=== PATIENT | female | born 1975 | race Caucasian/White ===

== ENCOUNTER 2017-03-31 18:19 | Emergency (ER) | payer MEDICAID ==
[~2017-03-31] VITALS: Ht 170.2 cm; Wt 90.0 kg
[~2017-03-31 18:19] MED LIST: AMOXIL500 M1 OR; CHANTIX PO; CHANTIX0.5 MG OR; CIPRO500 MG OR; CIPROFLOXACN500 MG PO; FERROUS SULF324 M1 PO; LORTAB 5 OR; LORTAB5 PO; NAPROSYN500 MG OR; NAPROSYN500 MG PO; NO HOME MEDS; PREVACID30 M1 PO; PYRIDIUM200 MG PO; ULTRAM50 M1 PO; ULTRAM50 MG OR; VALIUM5 MG PO; ZOFRAN ODT4 MG PO
[2017-03-31 19:02] LABS: URINE BILIRUBIN - DIPSTICK NEGATIVE (NEGATIVE); URINE BLOOD DIPSTICK TRACE-INTACT (NEGATIVE); URINE CLARITY CLEAR; URINE COLOR YELLOW; URINE GLUCOSE - DIPSTICK NEGATIVE (NEGATIVE); URINE KETONE NEGATIVE (NEGATIVE); URINE LEUK ESTERASE NEGATIVE (NEGATIVE); URINE NITRITE - DIPSTICK NEGATIVE (Negative); URINE PROTEIN - DIPSTICK NEGATIVE (NEG-TRACE); URINE UROBILINOGEN - DIPSTICK 0.2 E.U./dL (0.2)
[2017-03-31] MEDS ORDERED: ULTRAM50 M1 PO (19:42)
[2017-03-31 19:58] VITALS: BP 135/75
== END 2017-03-31 20:07 | disposition home or self-care (01) | DRG 605 ==
LOC: ED 18:19
PROVIDERS: Emergency Medicine
DX: S20.212A Contusion of left front wall of thorax, initial encounter (principal); F17.210 Nicotine dependence, cigarettes, uncomplicated; X58.XXXA Exposure to other specified factors, initial encounter; R07.81 Pleurodynia

== ENCOUNTER 2017-08-20 02:59 | Emergency (ER) | payer MEDICAID ==
[~2017-08-20] VITALS: Ht 172.7 cm; Wt 76.4 kg
[2017-08-20] MEDS ORDERED: ULTRAM50 M1 PO (04:32)
[2017-08-20] MEDS ORDERED: AMOXICILLIN500 MG PO (04:32)
[2017-08-20 04:40] VITALS: BP 132/72
== END 2017-08-20 04:47 | disposition home or self-care (01) | DRG 605 ==
LOC: ED 02:59
PROC: 0HQFXZZ Repair Right Hand Skin, External Approach (ICD-10-PCS; principal; 2017-08-20)
DX: S61.210A Laceration without foreign body of right index finger without damage to nail, initial encounter (principal); F17.210 Nicotine dependence, cigarettes, uncomplicated; W45.8XXA Other foreign body or object entering through skin, initial encounter; Y93.89 Activity, other specified; Y92.410 Unspecified street and highway as the place of occurrence of the external cause

== ENCOUNTER 2017-08-21 12:04 | Emergency (ER) | payer MEDICAID ==
[~2017-08-21] VITALS: Ht 172.7 cm; Wt 85.4 kg
[~2017-08-21 12:04] MED LIST changes: +AMOXICILLIN500 MG PO
[2017-08-21 12:27] VITALS: BP 134/81
== END 2017-08-21 12:35 | disposition home or self-care (01) | DRG 950 ==
LOC: ED 12:04
DX: S61.210D Laceration without foreign body of right index finger without damage to nail, subsequent encounter (principal)

== ENCOUNTER 2020-04-12 18:24 | Emergency (ER) | payer MEDICAID ==
[~2020-04-12] VITALS: Ht 172.7 cm; Wt 95.0 kg
[2020-04-12 19:11] LABS: URINE BILIRUBIN - DIPSTICK NEGATIVE (NEGATIVE); URINE BLOOD DIPSTICK SMALL (NEGATIVE); URINE CLARITY CLEAR; URINE COLOR YELLOW; URINE GLUCOSE - DIPSTICK 250 mg/dL (NEGATIVE); URINE KETONE NEGATIVE (NEGATIVE); URINE LEUK ESTERASE NEGATIVE (Negative); URINE NITRITE - DIPSTICK NEGATIVE (Negative); URINE PH 5.5 (4.5-8.0); URINE PROTEIN - DIPSTICK NEGATIVE (NEG-TRACE); URINE SPECIFIC GRAVITY >=1.030
[2020-04-12 19:34] LABS: URINE SQUAMOUS EPITHELIAL CELL FEW EPI/hpf (0-FEW)
[2020-04-12] MEDS ORDERED: TRAMADOL HYDROC50 M1 PO (19:54)
[2020-04-12 20:00] VITALS: BP 133/63
== END 2020-04-12 20:00 | disposition home or self-care (01) ==
LOC: ED 18:24
DX: M54.31 Sciatica, right side (principal); F17.210 Nicotine dependence, cigarettes, uncomplicated

== ENCOUNTER 2020-04-14 18:06 | Emergency (ER) | payer MEDICAID ==
[~2020-04-14] VITALS: Ht 172.7 cm; Wt 80.0 kg
[~2020-04-14 18:06] MED LIST changes: +TRAMADOL HYDROC50 M1 PO
[2020-04-14 20:30] LABS: HEMATOCRIT 34.6 % (37.0-47.0); HEMOGLOBIN 10.5 g/dl (12.0-16.0); MEAN CELL VOLUME 85.9 fL CALC (80.0-100.0); MEAN CORPUSCULAR HGB 26.1 pG CALC (26.0-32.0); MEAN CORPUSCULAR HGB CONC 30.3 g/dL CAL (32.0-36.0); RED BLOOD COUNT 4.03 mill/uL (4.20-5.60); RED CELL DISTRI WIDTH 15.3 % (11.5-15.5)
[2020-04-14 20:31] LABS: BASO% 0 % (0-3); EOS% 0 % (0-8); LYMPH% 21 % (15-41); MONO% 5 % (2-13); NEUT% 74 % (42-76); PLATELET COUNT 228 thou/uL (130-400)
[2020-04-14 20:40] LABS: ALBUMIN 4.1 g/dL (3.2-5.0); ALKALINE PHOSPHATASE 71 u/l (38-126); ANION GAP 12 (6-22 (CALC)); BILIRUBIN, TOTAL 0.3 mg/dL (0.0-1.4); BUN 17 mg/dL (7-17); BUN/CREATININE RATIO 21 (12-20 (CALC)); CARBON DIOXIDE 25 mmol/l (22-30); CHLORIDE 106 mmol/l (95-108); CREATININE 0.8 mg/dL (0.5-1.0); GFR > 60 ML/MIN (>=60 (CALC)); GFR FOR AFR.AMER. > 60 ML/MIN (>=60 (CALC)); POTASSIUM 4.5 mmol/l (3.5-5.1); SGOT/AST 19 u/l (14-36); SODIUM 139 mmol/l (137-146); TOTAL PROTEIN 7.1 g/dL (6.3-8.2)
[2020-04-14] MEDS ORDERED: CYCLOBENZAPRINE10 MG PO (21:05)
[2020-04-14] MEDS ORDERED: LORTAB 1010 MG PO (21:05)
[2020-04-14 21:37] VITALS: BP 162/97
== END 2020-04-14 21:39 | disposition home or self-care (01) ==
LOC: ED 18:06
PROVIDERS: Emergency Medicine
DX: M54.31 Sciatica, right side (principal); M47.816 Spondylosis without myelopathy or radiculopathy, lumbar region; F17.200 Nicotine dependence, unspecified, uncomplicated

== ENCOUNTER 2021-08-12 09:12 | Emergency (ER) | payer MEDICAID ==
[~2021-08-12] VITALS: Ht 170.2 cm; Wt 198.0 kg
[~2021-08-12 09:12] MED LIST changes: +CYCLOBENZAPRINE10 MG PO; +LORTAB 1010 MG PO
[2021-08-12 09:38] VITALS: BP 126/71
[2021-08-12] MEDS ORDERED: IBUPROFEN600 MG PO (11:36)
[2021-08-12 11:40] VITALS: BP 126/71
== END 2021-08-12 11:40 | disposition home or self-care (01) ==
LOC: ED 09:12
DX: S50.02XA Contusion of left elbow, initial encounter (principal); E11.9 Type 2 diabetes mellitus without complications; F17.200 Nicotine dependence, unspecified, uncomplicated; W01.0XXA Fall on same level from slipping, tripping and stumbling without subsequent striking against object, initial encounter

== ENCOUNTER 2023-01-27 11:21 | Emergency (ER) | payer OTHER ==
[~2023-01-27] VITALS: Ht 170.2 cm; Wt 84.0 kg
[~2023-01-27 11:21] MED LIST changes: +IBUPROFEN600 MG PO
[2023-01-27] MEDS ORDERED: TRULICITY3 MG/0.5 M SC (12:06)
[2023-01-27] MEDS ORDERED: MOTRIN800 MG PO (12:06)
[2023-01-27] MEDS ORDERED: METHOCARBAMOL500 MG PO (16:18)
[2023-01-27] MEDS ORDERED: MEDDOSEPAK PO (16:18)
[2023-01-27] MEDS ORDERED: NAPROXEN500 MG PO (16:18)
[2023-01-27 16:28] VITALS: BP 139/75
== END 2023-01-27 16:46 | disposition home or self-care (01) | DRG 552 ==
LOC: ED 11:21
DX: M43.6 Torticollis (principal); E11.9 Type 2 diabetes mellitus without complications; F17.210 Nicotine dependence, cigarettes, uncomplicated

== ENCOUNTER 2023-02-06 15:50 | Emergency (ER) | payer OTHER ==
[~2023-02-06] VITALS: Ht 170.2 cm; Wt 84.4 kg
[~2023-02-06 15:50] MED LIST changes: +MEDDOSEPAK PO; +METHOCARBAMOL500 MG PO; +MOTRIN800 MG PO; +NAPROXEN500 MG PO; +TRULICITY3 MG/0.5 M SC
[2023-02-06] MEDS ORDERED: DICLOFENAC SODIUM2 % TD (17:15)
[2023-02-06] MEDS ORDERED: METHOCARBAMOL500 MG PO (17:15)
[2023-02-06 17:33] VITALS: BP 146/88
== END 2023-02-06 17:40 | disposition home or self-care (01) | DRG 563 ==
LOC: ED 15:50
DX: S46.912A Strain of unspecified muscle, fascia and tendon at shoulder and upper arm level, left arm, initial encounter (principal); E11.9 Type 2 diabetes mellitus without complications; F17.200 Nicotine dependence, unspecified, uncomplicated; X58.XXXA Exposure to other specified factors, initial encounter